=== PATIENT | female | born 1985 | race Caucasian/White ===

== ENCOUNTER 2017-07-03 17:27 | Emergency (ER) | payer BC ==
[2017-07-03 17:44] VITALS: BP 142/93
--- NOTE | 2017-07-03 17:49 | UC ---
Ear Complaint HPI - HPI Summary HPI Summary: Pt presents with b/l ear pain and sinus symptoms. She tells me that about 7-10 days ago she developed mild sinus pain/pressure/congestion and b/l ear pain. She has been treating herself conservatively with fluids and rest. She says that she gets sinus infections at least twice a year and this feels similar. Over the last few days her sinus symptoms have been getting worse and her ear pain is getting worse. She denies fever, chills, cough, ST, SOB, chest pain, headache, dizziness, abdominal pain, N/V/D/c. - History of Current Complaint Chief Complaint: UCGeneralIllness Stated Complaint: EAR ACHE Time Seen by Provider: 07/03/17 17:49 Hx Last Menstrual Period: 04/09/17 [facility] - Allergies/Home Medications Allergies/Adverse Reactions: Allergies Allergy/AdvReac Type Severity Reaction Status Date / Time Sulfa Antibiotics Allergy Hives Verified 07/03/17 17:37 Home Medications: Home Medications Levonorgestrel-Ethinyl Estradi [Seasonique] 1 tab PO ONCE 07/03/17 [History Confirmed 07/03/17] Phenylephrine W/ Acetaminophen [Tylenol Sinus Congestion 5-325 mg] 1 tab PO 07/08 [History] PMH/Surg Hx/FS Hx/Imm Hx Previously Healthy: Yes - Surgical History Surgical History: None - Family History Known Family History: Positive: Unknown - Social History Occupation: Employed Full-time Lives: Alone Alcohol Use: None Substance Use Type: None Smoking Status (MU): Never Smoked Tobacco Review of Systems Constitutional: Negative Skin: Negative Eyes: Negative ENT: Ear Ache, Sinus Congestion, Sinus Pain/Tenderness Respiratory: Negative Cardiovascular: Negative Gastrointestinal: Negative All Other Systems Reviewed And Are Negative: Yes Physical Exam Triage Information Reviewed: Yes Appearance: Well-Appearing, Well-Nourished Vital Signs: Initial Vital Signs Temp 99.1 F 07/03/17 17:39 Pulse 68 07/03/17 17:39 Resp 16 07/03/17 17:39 BP 142/93 07/03/17 17:39 Pulse Ox 100 07/03/17 17:39 Vital Signs Reviewed: Yes Eyes: Positive: Conjunctiva Clear, Other: - PERRLA.. Negative: Conjunctiva Inflamed, Discharge ENT: Positive: Hearing grossly normal, Pharynx normal, Nasal congestion, Nasal drainage, TMs normal, Sinus tenderness, Uvula midline. Negative: Pharyngeal erythema, TM bulging, TM dull, TM red, Tonsillar swelling, Tonsillar exudate Neck: Positive: Supple, Nontender, No Lymphadenopathy Respiratory: Positive: Chest non-tender, Lungs clear, Normal breath sounds, No respiratory distress, No accessory muscle use Cardiovascular: Positive: RRR, No Murmur, Pulses Normal Neurological: Positive: Alert Psychological: Positive: Age Appropriate Behavior Skin: Negative: rashes Ear Complaint Course/Dx - Course Course Of Treatment: Sinusitis - rx for augmentin - Differential Dx/Diagnosis Differential Diagnosis/HQI/PQRI: Cerumen Impaction, Otitis Externa, Otitis Media , Perforated TM, Pharyngitis, URI Provider Diagnoses: Sinusitis Discharge - Discharge Plan Condition: Stable Disposition: HOME Prescriptions: Amoxicillin/Clavulanate TAB* [Augmentin TAB 875*] 875 mg PO BID #20 tab Patient Education Materials: Sinusitis (ED) Referrals: No Primary Care Phys,NOPCP [Primary Care Provider] - Additional Instructions: If you develop a fever, SOB, chest pain, new or worsening symptoms - please call your PCP or go to the ED. Your blood pressure was high at todays visit. Please see your primary provider within 4 weeks for recheck and re-evaluation.
== END 2017-07-03 17:57 | disposition home or self-care (01) ==
LOC: UCEAST 17:27
DX: J32.9 Chronic sinusitis, unspecified (principal); Z88.2 Allergy status to sulfonamides
CPT/HCPCS: 99202; G0463

== ENCOUNTER 2018-02-22 17:10 | Emergency (ER) | payer BC ==
[2018-02-22 17:21] VITALS: BP 130/88
--- NOTE | 2018-02-22 18:30 | RAD ---
INDICATION: Chest pain and shortness of breath COMPARISON: None TECHNIQUE: PA and lateral views of the chest were obtained. FINDINGS: The heart and mediastinum are normal in size and contour. The lungs are grossly clear. There is no evidence of large pleural effusion. Visualized bones are normal for the patient's age. There is no radiographic evidence of free air beneath the diaphragm IMPRESSION: No radiographic evidence of acute cardiopulmonary disease.
--- NOTE | 2018-02-22 20:15 | UC ---
Shortness of Breath HPI - HPI Summary HPI Summary: Patient is an otherwise healthy 32-year-old female with history of childhood asthma presenting to the with complaint of shortness of breath and pain with inspiration to the midsternal region 4 days. Denies any recent travel, smoking history, calf pain, known malignancy, however she endorses OCP use in the form of progestin only. Symptoms began 4 days ago while running on the treadmill and began feeling severely short of breath after approximate 2 minutes. She states this is not normal for her as she is able to run for several miles prior to getting short of breath. She endorses a mild amount of environmental allergies and states this could be the reason for her symptoms. However, symptoms are worse with waking up and just before bed and improved during the day. She denies any difference and shortness of breath while sitting in recumbent position compared to upright position. Denies any other medications, fevers, cough or cardiac history. - History of Current Complaint Chief Complaint: UCRespiratory Stated Complaint: CHEST CONGESTION Time Seen by Provider: 02/22/18 17:32 Hx Obtained From: Patient Hx Last Menstrual Period: 02/03 ?: No Onset/Duration: Sudden Onset Timing: Constant Current Severity: Mild Dyspnea At: Rest Aggrevating Factors: Deep Breaths Associated Signs & Symptoms: Positive: Chest Pain Unrelated to Cough. Negative : Cough (Productive), Cough (Nonproductive), Cough (Bloody Sputum), Diaphoresis , Nasal Congestion, Calf Pain/Swelling - Risk Factors Pulmonary Embolism: Oral Contraceptives Pseudomonas: Negative Tuberculosis: Negative - Allergy/Home Medications Allergies/Adverse Reactions: Allergies Allergy/AdvReac Type Severity Reaction Status Date / Time Sulfa (Sulfonamide Allergy Intermediate Hives Verified 02/22/18 18:57 Antibiotics) Home Medications: Home Medications Norethindrone [Martina] 0.35 mg PO DAILY WITH MEAL 02/22/18 [History Confirmed 10/07] PMH/Surg Hx/FS Hx/Imm Hx Previously Healthy: Yes - Surgical History Surgical History: Yes Surgery Procedure, Year, and Place: right knee 2018 - Family History Known Family History: Positive: Unknown - Social History Occupation: Employed Full-time Lives: With Family Alcohol Use: Occasionally Substance Use Type: None Smoking Status (MU): Never Smoked Tobacco Review of Systems Constitutional: Negative Skin: Negative Respiratory: Shortness Of Breath Cardiovascular: Chest Pain - with deep inspiration Gastrointestinal: Negative Motor: Negative Neurovascular: Negative Neurological: Negative Is Patient Immunocompromised?: No All Other Systems Reviewed And Are Negative: Yes Physical Exam Triage Information Reviewed: Yes Appearance: Well-Appearing, No Pain Distress, Well-Nourished Vital Signs: Initial Vital Signs Temp 99.3 F 02/22/18 17:15 Pulse 65 02/22/18 17:15 Resp 18 02/22/18 17:15 BP 130/88 02/22/18 17:15 Pulse Ox 100 02/22/18 17:15 Vital Signs Reviewed: Yes Eye Exam: Normal Eyes: Positive: Conjunctiva Clear Neck exam: Normal Neck: Positive: Supple, No Lymphadenopathy Respiratory Exam: Normal Respiratory: Positive: Chest non-tender, Lungs clear Cardiovascular: Positive: RRR, No Murmur Musculoskeletal Exam: Normal Musculoskeletal: Positive: Strength Intact Neurological Exam: Normal Psychological: Positive: Normal Response To Family Skin Exam: Normal Shortness of Breath Dx - Course Course Of Treatment: Chest x-ray obtained which shows no acute active pulmonary disease. EKG shows normal sinus rhythm. I discussed I'm unable to rule out a pulmonary embolism without labs. I have encouraged her to go to the ED for further evaluation of her shortness of breath to which she agrees. - Differential Dx/Diagnosis Differential Diagnosis/HQI/PQRI: Asthma, Chest Wall Pain, Pulmonary Embolism Provider Diagnoses: Shortness of breath Discharge - Sign-Out/Discharge Documenting (check all that apply): Patient Departure - Discharge Plan Condition: Stable Disposition: HOME-RECOMMEND TO ED Referrals: Miguel A Bruno MD [Primary Care Provider] - Additional Instructions: Please go directly to the ED - Billing Disposition and Condition Condition: STABLE Disposition: Home-Recommend to ED
== END 2018-02-22 18:38 | disposition home health service (06) ==
LOC: UCEAST 17:10
DX: R06.02 Shortness of breath (principal); Z88.2 Allergy status to sulfonamides
CPT/HCPCS: 71046; 93005; 99212; G0463

== ENCOUNTER 2018-02-22 18:51 | Emergency (ER) | payer BC ==
--- NOTE | 2018-02-22 20:44 | ED ---
Shortness of Breath - HPI Summary HPI Summary: This is zara Lovett documenting for attending Alfredo Licona MD. This patient is a 32 year old F presenting to [facility] upon referral from [facility] with a chief complaint of shortness of breath since 3 days ago. The patient reports that her symptoms first started 3 days ago when she started a cardio workout and she experienced sudden shortness of breath that she thought was an asthma attack. Patient notes that since then, she has dyspnea with exertion. The patient rates the pain 2/10 in severity. Symptoms aggravated by deep breaths. Symptoms alleviated by nothing. The patient received an EKG and CXR at [facility] that were normal. Patient takes progesterone-only control. - History of Current Complaint Chief Complaint: EDShortnessOfBreath Time Seen by Provider: 02/22/18 20:32 Hx Obtained From: Patient Onset/Duration: Sudden Onset, Lasting Days - 3 days, Still Present Timing: Intermittent Episodes Lasting: Current Severity: Mild Dyspnea At: Exertion Aggrevating Factors: Deep Breaths Alleviating Factors: Nothing - Allergy/Home Medications Allergies/Adverse Reactions: Allergies Allergy/AdvReac Type Severity Reaction Status Date / Time Sulfa (Sulfonamide Allergy Intermediate Hives Verified 02/22/18 18:57 Antibiotics) PMH/Surg Hx/FS Hx/Imm Hx Endocrine/Hematology History: Denies: Hx Diabetes, Hx Thyroid Disease Cardiovascular History: Denies: Hx Hypertension Respiratory History: Denies: Hx Asthma, Hx Chronic Obstructive Pulmonary Disease (COPD), Other Respiratory Problems/Disorders GI History: Denies: Hx Ulcer Opthamlomology History: Denies: Hx Legally Blind EENT History: Denies: Hx Deafness - Surgical History Surgery Procedure, Year, and Place: right knee 2018 Infectious Disease History: No Infectious Disease History: Denies: Hx Hepatitis, Hx Human Immunodeficiency Virus (HIV), Traveled Outside the [place] in Last 30 Days - Family History Known Family History: Positive: None - patient denies relevant FHx - Social History Alcohol Use: Occasionally Substance Use Type: Reports: None Smoking Status (MU): Never Smoked Tobacco Review of Systems Negative: Fever Negative: Epistaxis Positive: Shortness Of Breath Negative: Vomiting All Other Systems Reviewed And Are Negative: Yes Physical Exam - Summary Physical Exam Summary: VITAL SIGNS: Reviewed. GENERAL: Patient is a well-developed and nourished FEMALE who is lying comfortable in the stretcher. Patient is not in any acute respiratory distress. HEAD AND FACE: No signs of trauma. No ecchymosis, hematomas or skull depressions. No sinus tenderness. EYES: PERRLA, EOMI x 2, No injected conjunctiva, no nystagmus. EARS: Hearing grossly intact. Ear canals and tympanic membranes are within normal limits. MOUTH: Oropharynx within normal limits. NECK: Supple, trachea is midline, no adenopathy, no JVD, no carotid bruit, no c- spine tenderness, neck with full ROM. CHEST: Symmetric, no tenderness at palpation LUNGS: Clear to auscultation bilaterally. No wheezing or crackles. CVS: Regular rate and rhythm, S1 and S2 present, no murmurs or gallops appreciated. ABDOMEN: Soft, non-tender. No signs of distention. No rebound no guarding, and no masses palpated. Bowel sounds are normal. EXTREMITIES: FROM in all major joints, no edema, no cyanosis or clubbing. NEURO: Alert and oriented x 3. No acute neurological deficits. Speech is normal and follows commands. SKIN: Dry and warm Triage Information Reviewed: Yes Vital Signs On Initial Exam: Initial Vitals Temp Pulse Resp BP Pulse Ox 99 F 71 16 130/94 100 02/22/18 18:53 02/22/18 18:53 02/22/18 18:53 02/22/18 18:53 02/22/18 18:53 Vital Signs Reviewed: Yes Diagnostics - Vital Signs Vital Signs Temp Pulse Resp BP Pulse Ox 02/22/18 18:53 99 F 71 16 130/94 100 - Laboratory Result Diagrams: 02/22/18 20:56 02/22/18 20:56 Lab Statement: Any lab studies that have been ordered have been reviewed, and results considered in the medical decision making process. Re-Evaluation - Re-Evaluation First Eval Re-Evaluation Time: 21:57 Comment: Patient is feeling better. Discussed discharge plan. Course/Dx - Course Course Of Treatment: This patient is a 32 year old F who comes to the ED with some chest aches for the past couple days with difficulty breathing when she runs and exercises. Her exam was unremarkable and her EKG looks okay. She probably has chest wall pain. She will be discharged home with a dx of chest wall pain. Patient understands and agrees. - Diagnoses Differential Diagnosis/HQI/PQRI: Positive: Chest Wall Pain Provider Diagnoses: Chest wall pain Discharge - Sign-Out/Discharge Documenting (check all that apply): Patient Departure - Discharge Plan Condition: Stable Disposition: HOME Patient Education Materials: Chest Wall Pain (ED) Referrals: Miguel A Bruno MD [Primary Care Provider] - (Follow up in 1-2 days.) Additional Instructions: NO GYM. NO EXERCISE. NO RUNNING UNTIL YOU FEEL BETTER. TAKE MOTRIN NEEDED FOR PAIN. RETURN TO THE EMERGENCY DEPARTMENT FOR CHANGING OR WORSENING SYMPTOMS.
[2018-02-22 21:04] LABS: ABS Basophils 0 10^3/ul (0-0.2); ABS Eosinophils 0.1 10^3/ul (0-0.6); ABS Lymphocytes 2.9 10^3/ul (1.0-4.8); ABS Monocytes 0.7 10^3/ul (0-0.8); ABS Neutrophils 5.9 10^3/ul (1.5-7.7); ABS Nucleated RBC 0 10^3/ul; Eosinophil % 1.1 % (0-6); Hematocrit 38 % (35-47); Hemoglobin 12.9 g/dl (12.0-16.0); Lymphocyte % 30.3 % (25-47); Mean Corpuscular HGB Conc 34 g/dl (31-36); Mean Corpuscular Hemoglobin 31 pg (27-31); Mean Corpuscular Volume 90 fL (80-97); Mean Platelet Volume 7.4 um3 (7.4-10.4); Nucleated Red Blood Cells % 0; Platelet Count 253 10^3/ul (150-450); Red Blood Count 4.21 10^6/ul (4.00-5.40); Red Cell Distribution Width 13 % (10.5-15); White Blood Count 9.6 10^3/ul (3.5-10.8)
[2018-02-22 21:12] LABS: INR 0.97 (0.77-1.02)
[2018-02-22 21:20] LABS: EGFR Non-African American 86.7 (>60)
[2018-02-22 22:03] VITALS: BP 135/96
== END 2018-02-22 22:01 | disposition home or self-care (01) ==
LOC: ED 18:51
DX: R07.89 Other chest pain (principal); R06.02 Shortness of breath
CPT/HCPCS: 36415; 80053; 84484; 84702; 85025; 85379; 85610; 85730; 86140; 99282